=== PATIENT | female | born 1965 | race Caucasian/White ===

== ENCOUNTER 2017-06-05 10:12 | Emergency (ER) | payer MEDICAID, OTHER ==
[2017-06-05 10:13] VITALS: BMI 29.6
[2017-06-05 10:21] VITALS: RESP 18
[2017-06-05] MEDS ORDERED: Dexamethasone 4 mg/1 ml IM STA (11:48)
[2017-06-05] MEDS ORDERED: Lidocaine 5% Patch TD STA (11:49)
[2017-06-05] MEDS ORDERED: Dexamethasone 4 mg/1 ml ONE (12:10)
[2017-06-05] MEDS ORDERED: Lidocaine 5% Patch TD ONE (12:10)
--- NOTE | 2017-06-05 12:54 | C.PDOC ---
History Of Present Illness 52 year old female presents to the ED for evaluation of right-sided lower back pain which began yesterday. Patient states her pain is non-radiating and worse with movement of her back. Patient has been taking [id number] pain medicine without significant relief. Patient was evaluated at [facility] yesterday and was given Morphine and Flexeril, from which she found no relief. Patient denies fever, chills, abdominal pain, urinary/bowel incontinence , extremity numbness/weakness, or recent trauma/falls. Time Seen by Provider: 06/05/17 10:45 Chief Complaint (Nursing): Back Pain History Per: Patient History/Exam Limitations: no limitations Onset/Duration Of Symptoms: Hrs Current Symptoms Are (Timing): Still Present Quality Of Discomfort: "Pain" Previous Symptoms: Back Pain Associated Symptoms: denies: Incontinence, New Weakness, New Numbness Exacerbating Factor(s): Movement Additional History Per: Patient Past Medical History Reviewed: Historical Data, Nursing Documentation, Vital Signs Vital Signs: Last Vital Signs Temp 97.8 F 06/05/17 13:10 Pulse 78 06/05/17 13:10 Resp 18 06/05/17 13:10 BP 117/75 06/05/17 13:10 Pulse Ox 99 06/05/17 14:22 - Medical History PMH: Back Problems Surgical History: No Surg Hx Family History: States: Unknown Family Hx - Social History Hx Tobacco Use: Yes Hx Alcohol Use: Yes Hx Substance Use: No - Immunization History Hx Tetanus Toxoid Vaccination: Yes Hx Influenza Vaccination: Yes Hx Pneumococcal Vaccination: No Review Of Systems Constitutional: Negative for: Fever, Chills Gastrointestinal: Negative for: Abdominal Pain Genitourinary: Negative for: Incontinence Musculoskeletal: Positive for: Back Pain (right-sided, lower ) Neurological: Negative for: Weakness, Numbness Physical Exam - Physical Exam Appears: Non-toxic, No Acute Distress Skin: Normal Color, Warm, Dry, No Rash Head: Atraumatic, Normacephalic Eye(s): bilateral: Normal Inspection, PERRL, EOMI Oral Mucosa: Moist Neck: Normal ROM, Supple Chest: Symmetrical, No Deformity, No Tenderness Cardiovascular: Rhythm Regular, No Murmur Respiratory: Normal Breath Sounds, No Rales, No Rhonchi, No Wheezing Gastrointestinal/Abdominal: Soft, No Tenderness, No Guarding, No Rebound Back: No CVA Tenderness, Muscle Spasm (right lower back ) Extremity: Normal ROM, No Calf Tenderness, Capillary Refill (less than 2 seconds ), No Swelling Neurological/Psych: Oriented x3, Normal Speech, Normal Cognition, Normal Motor Gait: Steady ED Course And Treatment O2 Sat by Pulse Oximetry: 99 (on RA) Pulse Ox Interpretation: Normal Medical Decision Making Medical Decision Making: Progress: Toradol IM, Decadron IM and Lidoderm TD administered. On re-exam, the patient reports improvement of symptoms. Ambulatory in the ED with steady gait. Abdomen is soft, non-tender and patient is tolerating PO well. Lungs are CTA, heart is RRR. Follow up with the medical doctor within 1-2 days. return if worsened. Disposition - Disposition Referrals: [facility] [Outside] Disposition: HOME/ ROUTINE Disposition Time: 12:51 Condition: GOOD Additional Instructions: Follow up with the medical doctor within 1-2 days. Return if worsened. Prescriptions: diaZEpam [Valium] 5 mg PO TID #21 tab Naproxen [Naprosyn] 500 mg PO BID #20 tab Instructions: Muscle Spasm (ED) Forms: [email or web address] (Yakut), Work Excuse - Clinical Impression Clinical Impression: Muscle spasm, Low back pain - PA / GUARDIAN FAMILY MEMBER / Resident Statement MD/DO has reviewed & agrees with the documentation as recorded. - Scribe Statement The provider has reviewed the documentation as recorded by the Scribe (Kay Flores) All medical record entries made by the Scribe were at my direction and personally dictated by me. I have reviewed the chart and agree that the record accurately reflects my personal performance of the history, physical exam, medical decision making, and the department course for this patient. I have also personally directed, reviewed, and agree with the discharge instructions and disposition.
[2017-06-05 13:12] VITALS: BP 117/75; PULSE 78; TEMP 97.8; O2SAT 99
== END 2017-06-05 13:11 | disposition home or self-care (01) ==
LOC: C.ER 10:12
DX: M54.5 Low back pain (principal); M62.830 Muscle spasm of back
CPT/HCPCS: 96372; 99284; J1100; J1885

== ENCOUNTER 2017-09-29 15:37 | Emergency (ER) | payer SELFPAY ==
[2017-09-29 16:10] VITALS: BMI 34.7
--- NOTE | 2017-09-29 17:39 | C.PDOC ---
History Of Present Illness 52 year old female with a Hx of tennis elbow presents to the ER with a complaint of persistent right elbow pain. 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 She was seen by ortho who advised to take naproxen; she also notes she has been using a tens machine at home and applying cold compress with no resolution over the past month. Denies weakness, numbness , or new injury. Time Seen by Provider: 09/29/17 17:12 Chief Complaint (Nursing): Upper Extremity Problem/Injury History Per: Patient History/Exam Limitations: no limitations Onset/Duration Of Symptoms: Days Current Symptoms Are (Timing): Still Present Exacerbating Factor(s): Strenuous Use Of Affected Area Recent travel outside of the [place]: No Past Medical History Reviewed: Historical Data, Nursing Documentation, Vital Signs Vital Signs: Last Vital Signs Temp 98.4 F 09/29/17 17:54 Pulse 70 09/29/17 17:54 Resp 20 09/29/17 17:54 BP 110/68 09/29/17 17:54 Pulse Ox 98 09/30/17 09:20 - Medical History PMH: Back Problems Family History: States: Unknown Family Hx - Social History Hx Tobacco Use: Yes Hx Alcohol Use: Yes Hx Substance Use: No - Immunization History Hx Tetanus Toxoid Vaccination: Yes Hx Influenza Vaccination: No Hx Pneumococcal Vaccination: No Review Of Systems Musculoskeletal: Positive for: Arm Pain Neurological: Negative for: Weakness, Numbness Physical Exam - Physical Exam Appears: Non-toxic, No Acute Distress Skin: Normal Color, Warm, Dry Head: Atraumatic, Normacephalic Eye(s): bilateral: Normal Inspection Extremity: Normal ROM (Right elbow with pain), Tenderness (Right lateral elbow) , Capillary Refill (<2 seconds), No Deformity, No Swelling, No Other (Redness) Pulses: Left Radial: Normal, Right Radial: Normal Neurological/Psych: Oriented x3, Normal Speech, Normal Motor, Normal Sensation ED Course And Treatment O2 Sat by Pulse Oximetry: 98 Medical Decision Making Medical Decision Making: pt with diagnosed tennis elbow right c/o pain x 1 month depsite nsaids, tens machine. cold compresses. pt still working. will apply eugenio bandage, recommend f/ u with ortho again and pain mgmt. Disposition Counseled Patient/Family Regarding: Diagnosis, Need For Followup, Rx Given - Disposition Referrals: Kenney Maravilla MD [Staff Provider] - Disposition: HOME/ ROUTINE Disposition Time: 17:39 Condition: STABLE Additional Instructions: Wear eugenio bandage on right elbow for support. FOllow up with your orthopedist, and pain management doctor. Continue taking naproxen and tylenol. Instructions: Elbow Tendinopathy (Tennis and Golf Elbow) Forms: General Discharge Instructions, [facility] (North Korean), Work Excuse - Clinical Impression Clinical Impression: Tendonitis of elbow, right - PA / COMMERCIAL COORDINATOR / Resident Statement MD/DO has reviewed & agrees with the documentation as recorded. - Scribe Statement The provider has reviewed the documentation as recorded by the Scribgraciela Garcia All medical record entries made by the Tinaibgraciela were at my direction and personally dictated by me. I have reviewed the chart and agree that the record accurately reflects my personal performance of the history, physical exam, medical decision making, and the department course for this patient. I have also personally directed, reviewed, and agree with the discharge instructions and disposition.
[2017-09-29 17:57] VITALS: BP 110/68; PULSE 70; RESP 20; TEMP 98.4
[2017-09-30 09:20] VITALS: O2SAT 98
== END 2017-09-29 17:58 | disposition home or self-care (01) ==
LOC: C.ER 15:37
DX: M77.8 Other enthesopathies, not elsewhere classified (principal)

== ENCOUNTER 2017-10-09 14:15 | Emergency (ER) | payer OTHER ==
[2017-10-09 14:15] VITALS: BMI 34.7
[2017-10-09 14:44] VITALS: O2SAT 98
--- NOTE | 2017-10-09 14:52 | C.PDOC ---
History Of Present Illness 52 y/o female presents to the ED for evaluation of right-sided lower back pain which began 2 days ago. She notes the pain radiates to down her leg. Patient reports history of similar symptoms for "years." She states she underwent an MRI , which showed herniated discs. 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 Patient has not taken any medicine today. She denies fever , chills, abdominal pain, urinary/bowel incontinence, recent falls/trauma, extremity numbness/weakness. Time Seen by Provider: 10/09/17 14:52 Chief Complaint (Nursing): Back Pain History Per: Patient History/Exam Limitations: no limitations Onset/Duration Of Symptoms: Days (2) Current Symptoms Are (Timing): Still Present Quality Of Discomfort: "Pain" Previous Symptoms: Back Pain Associated Symptoms: denies: Incontinence, New Weakness, New Numbness Additional History Per: Patient Past Medical History Reviewed: Historical Data, Nursing Documentation, Vital Signs Vital Signs: Last Vital Signs Temp 98.2 F 10/09/17 15:55 Pulse 79 10/09/17 15:55 Resp 16 10/09/17 15:55 BP 102/68 10/09/17 15:55 Pulse Ox 98 10/09/17 19:25 - Medical History PMH: Back Problems Surgical History: No Surg Hx Family History: States: Unknown Family Hx - Social History Hx Tobacco Use: Yes Hx Alcohol Use: Yes Hx Substance Use: No - Immunization History Hx Tetanus Toxoid Vaccination: Yes Hx Influenza Vaccination: No Hx Pneumococcal Vaccination: No Review Of Systems Constitutional: Negative for: Fever, Chills Gastrointestinal: Negative for: Abdominal Pain Genitourinary: Negative for: Incontinence Musculoskeletal: Positive for: Back Pain (right-sided, lower ), Leg Pain Neurological: Negative for: Weakness, Numbness Physical Exam - Physical Exam Appears: Non-toxic, No Acute Distress Skin: Normal Color, Warm, Dry Head: Atraumatic, Normacephalic Eye(s): bilateral: Normal Inspection, EOMI Nose: Normal Oral Mucosa: Moist Neck: Normal ROM, Supple Chest: Symmetrical, No Deformity, No Tenderness Cardiovascular: Rhythm Regular Respiratory: Normal Breath Sounds, No Rales, No Rhonchi, No Wheezing Gastrointestinal/Abdominal: Normal Exam, Soft, No Tenderness Back: No CVA Tenderness, No Vertebral Tenderness, Other (right lower back tenderness ) Extremity: Normal ROM, Capillary Refill (less than 2 seconds ) Pulses: Left Dorsalis Pedis: Normal, Right Dorsalis Pedis: Normal Neurological/Psych: Oriented x3, Normal Speech, Normal Cognition, Normal Motor, Normal Sensation Gait: Steady ED Course And Treatment O2 Sat by Pulse Oximetry: 98 (on RA) Pulse Ox Interpretation: Normal Progress Note: UA ordered and reviewed. Pt declined XR. Flexeril PO and Toradol IM administered. On reassessment, patient is resting comfortably, with improvement of back pain. Patient remains afebrile, with no bony tenderness, extremity numbness or weakness, or abdominal pain. Patient is ambulatory in the emergency department with no signs of discomfort. Patient was advised to follow up with physician/clinic in 2-5 days. Disposition - Disposition Disposition: HOME/ ROUTINE Disposition Time: 15:45 Condition: STABLE Additional Instructions: Follow up with the clinic in 2-5 days for further evaluation. Take medications as prescribed. Return to the emergency department at any time if symptoms persist or worsen. You may call [facility] for any assistance [phone]. Prescriptions: Cyclobenzaprine [Cyclobenzaprine HCl] 10 mg PO TID #20 tab Naproxen [Naprosyn] 1 tab PO BID PRN #20 tab PRN Reason: Pain Instructions: Low Back Pain (DC) Forms: [facility] (Arabic), Work Excuse - Clinical Impression Clinical Impression: Low back strain - PA / PROFESSOR OF PHYSICS / Resident Statement MD/DO has reviewed & agrees with the documentation as recorded. - Scribe Statement The provider has reviewed the documentation as recorded by the Scribe (Kay Flores) All medical record entries made by the Scribe were at my direction and personally dictated by me. I have reviewed the chart and agree that the record accurately reflects my personal performance of the history, physical exam, medical decision making, and the department course for this patient. I have also personally directed, reviewed, and agree with the discharge instructions and disposition.
[2017-10-09 15:33] LABS: SQUAMOUS EPITHIAL 1 /hpf (0-5); URINE BILIRUBIN NEGATIVE (NEGATIVE); URINE BLOOD NEGATIVE (NEGATIVE); URINE CLARITY Clear (Clear); URINE COLOR Yellow (YELLOW); URINE GLUCOSE (UA) NORMAL (Normal); URINE LEUKOCYTE ESTERASE NEG Leu/uL (Negative); URINE NITRATE NEGATIVE (NEGATIVE); URINE PROTEIN NEGATIVE (NEGATIVE); URINE UROBILINOGEN NORMAL mg/dL (0.2-1.0)
[2017-10-09 15:36] LABS: HCG,QUALITATIVE URINE NEGATIVE (NEGATIVE)
[2017-10-09 16:11] VITALS: BP 102/68; PULSE 79; RESP 16; TEMP 98.2
== END 2017-10-09 15:55 | disposition home or self-care (01) ==
LOC: C.ER 14:15
DX: S39.012A Strain of muscle, fascia and tendon of lower back, initial encounter (principal); X50.3XXA Overexertion from repetitive movements, initial encounter; Y92.89 Other specified places as the place of occurrence of the external cause; Y99.0 Civilian activity done for income or pay
CPT/HCPCS: 81001; 84703; 96372; 99283; J1885

== ENCOUNTER 2017-10-22 11:26 | Emergency (ER) | payer OTHER ==
[2017-10-22 11:30] VITALS: BMI 35.6
[2017-10-22 11:32] VITALS: PULSE 75
[2017-10-22] MEDS ORDERED: Lidocaine 5% Patch TD STA (11:46)
--- NOTE | 2017-10-22 12:11 | C.PDOC ---
History Of Present Illness Patient is a 52 y/o female who presents to the ED with a complaint of left- sided back pain. Patient admits to having a Hx of recurrent back pain, but notes it is usually on the right side that radiates to the right leg. Patient reports to have been leaving her house today when she felt left-sided back pain that suddenly radiated to the left leg, noting tingling sensations. Rates pain 8 /10 with worsening, sharp pain with movement. Denies any dysuria, hematuria, fever, chills, or any other physical complaints at this time. Time Seen by Provider: 10/22/17 11:42 Chief Complaint (Nursing): Back Pain History Per: Patient History/Exam Limitations: no limitations Onset/Duration Of Symptoms: Hrs Current Symptoms Are (Timing): Still Present Quality Of Discomfort: Sharp Previous Symptoms: Back Pain (usually right sided) Associated Symptoms: Other (tingling to left leg) Exacerbating Factor(s): Movement Recent travel outside of the [place]: No Past Medical History Reviewed: Historical Data, Nursing Documentation, Vital Signs Vital Signs: Last Vital Signs Temp 97.8 F 10/22/17 11:30 Pulse 75 10/22/17 11:30 Resp 18 10/22/17 11:30 BP 125/79 10/22/17 11:30 Pulse Ox 98 10/22/17 12:21 - Medical History PMH: Back Problems Surgical History: No Surg Hx Family History: States: No Known Family Hx - Social History Hx Tobacco Use: Yes (light smoker) Hx Alcohol Use: Yes Hx Substance Use: No - Immunization History Hx Tetanus Toxoid Vaccination: No Hx Influenza Vaccination: No Hx Pneumococcal Vaccination: No Review Of Systems Constitutional: Negative for: Fever, Chills Genitourinary: Negative for: Dysuria, Hematuria Musculoskeletal: Positive for: Back Pain (left-sided), Leg Pain (left leg radiated from back) Physical Exam - Physical Exam Appears: Well Back: Normal Inspection, No CVA Tenderness, Other (responding in pain every few minutes to spasm) Extremity: No Tenderness, No Deformity ED Course And Treatment O2 Sat by Pulse Oximetry: 98 Medical Decision Making Medical Decision Making: Motrin, tylenol, flexeril, and lidoderm administered. Patient requesting Todadol. Given. Patient feeling better. Disposition Counseled Patient/Family Regarding: Diagnosis, Need For Followup, Rx Given - Disposition Disposition: HOME/ ROUTINE Disposition Time: 13:57 Condition: STABLE Additional Instructions: Rest. Take medications as indicated. Follow up with your doctor. Prescriptions: Cyclobenzaprine [Cyclobenzaprine HCl] 10 mg PO TID #12 tab Ibuprofen [Motrin] 600 mg PO TID #15 tab Lidocaine 5% [Lidoderm] 1 ea TD DAILY #1 patch Instructions: Muscle Spasms (DC) Forms: [employer] (Bangladeshi), General Discharge Instructions, Work Excuse - POA Present On Arrival: None - Clinical Impression Clinical Impression: Sciatica, Muscle spasm - Scribe Statement The provider has reviewed the documentation as recorded by the Scribe Nereida Vidales All medical record entries made by the Scribe were at my direction and personally dictated by me. I have reviewed the chart and agree that the record accurately reflects my personal performance of the history, physical exam, medical decision making, and the department course for this patient. I have also personally directed, reviewed, and agree with the discharge instructions and disposition.
[2017-10-22] MEDS ORDERED: Lidocaine 5% Patch TD ONE (12:15)
[2017-10-22 14:38] VITALS: BP 136/84; RESP 20; TEMP 98.7; O2SAT 95
== END 2017-10-22 14:38 | disposition home or self-care (01) ==
LOC: C.ER 11:26
DX: M54.30 Sciatica, unspecified side (principal); M62.838 Other muscle spasm; F17.210 Nicotine dependence, cigarettes, uncomplicated
CPT/HCPCS: 96372; 99283; J1885

== ENCOUNTER 2017-12-11 08:53 | Emergency (ER) | payer OTHER ==
[2017-12-11 08:53] VITALS: BMI 35.6
[2017-12-11 08:59] VITALS: BP 113/73; PULSE 71; RESP 18; TEMP 97.8; O2SAT 98
--- NOTE | 2017-12-11 10:12 | RAD ---
HISTORY: cough COMPARISON: Comparison made with chest radiograph dated 03/21 TECHNIQUE: Chest PA and lateral FINDINGS: LUNGS: No active pulmonary disease. PLEURA: No significant pleural effusion identified. No pneumothorax apparent. CARDIOVASCULAR: Normal. OSSEOUS STRUCTURES: Minor multilevel degenerative spondylosis of the thoracic spine. Spell VISUALIZED UPPER ABDOMEN: Normal. OTHER FINDINGS: None. IMPRESSION: No active disease.
--- NOTE | 2017-12-11 10:27 | C.PDOC ---
History Of Present Illness 52 y/o female presents to the ER complaining of non-productive cough, and sore throat which has been present for the past 3 days. Patient states that she has some nasal congestion and she is losing her voice. Otherwise, patient denies having fever, CP, SOB, and other medical complaints. HPI: Influenza Time Seen by Provider: 12/11/17 09:12 Chief Complaint: Cough, Cold, Congestion History Per: Patient Onset/Duration Of Symptoms: Days Symptoms include: sore throat, cough. denies: chest pain Risk factors for flu complications: No: adult > 65 years Past Medical History Reviewed: Historical Data, Nursing Documentation, Vital Signs Vital Signs: Last Vital Signs Temp 97.8 F 12/11/17 08:57 Pulse 71 12/11/17 08:57 Resp 18 12/11/17 08:57 BP 113/73 12/11/17 08:57 Pulse Ox 98 12/11/17 08:57 - Medical History PMH: Back Problems Other Surgeries: Hx of surgeries Family History: States: No Known Family Hx - Social History Hx Tobacco Use: Yes (light smoker) Hx Alcohol Use: Yes Hx Substance Use: No - Immunization History Hx Tetanus Toxoid Vaccination: No Hx Influenza Vaccination: No Hx Pneumococcal Vaccination: No Review Of Systems Constitutional: Negative for: Fever, Chills ENT: Positive for: Throat Pain Cardiovascular: Negative for: Chest Pain Respiratory: Positive for: Cough (non-productive cough). Negative for: Shortness of Breath, Hemoptysis, SOB with Excertion, Wheezing Gastrointestinal: Negative for: Nausea, Vomiting, Abdominal Pain, Constipation Genitourinary: Negative for: Dysuria Neurological: Negative for: Weakness, Numbness, Headache Physical Exam - Physical Exam Appears: Well, Non-toxic, No Acute Distress, Other (awake, alert, oriented x 3, coughing during exam) Skin: Normal Color, Warm Head: Atraumatic, Normacephalic Eye(s): bilateral: Normal Inspection Ear(s): Bilateral: Normal Throat: Erythema (mild erythema), No Exudate Neck: Supple Cardiovascular: Rhythm Regular Respiratory: Normal Breath Sounds, No Rales, No Rhonchi, No Wheezing Back: Normal Inspection Extremity: Normal ROM Neurological/Psych: Oriented x3, Normal Speech - ECG O2 Sat by Pulse Oximetry: 98 (RA) Pulse Ox Interpretation: Normal - Radiology X-Ray: Interpreted by Me, Viewed By Me X-Ray Interpretation: No Acute Disease - Progress ED Course And Treament: Rapid Strep Test and CXR ordered to rule out pneumonia. Patient given Toradol IM and Tessalon Perles PO. Cxray negative. Strep negative. Outside the window for tamiflu. Well appearing with normal vitals. Disposition - Disposition Disposition: HOME/ ROUTINE Disposition Time: 11:08 Condition: GOOD Additional Instructions: Follow-up with PMD within 2 days. Rest, copious fluids. Motrin or tylenol for pain or fever. Return to ED if condition worsens. Instructions: Upper Respiratory Infection (ED) Forms: [employer] (Gibraltarian), [employer] (Lao), Work Excuse Print Language: MOROCCAN - Clinical Impression Clinical Impression: Influenza-like illness, Upper respiratory infection - Scribe Statement The provider has reviewed the documentation as recorded by the Scribe Alber Maharaj Provider Attestation: All medical record entries made by the Scribe were at my direction and personally dictated by me. I have reviewed the chart and agree that the record accurately reflects my personal performance of the history, physical exam, medical decision making, and the department course for this patient. I have also personally directed, reviewed, and agree with the discharge instructions and disposition.
== END 2017-12-11 11:15 | disposition home or self-care (01) ==
LOC: C.ER 08:53
DX: J11.1 Influenza due to unidentified influenza virus with other respiratory manifestations (principal); F17.210 Nicotine dependence, cigarettes, uncomplicated
CPT/HCPCS: 71046; 87070; 87430; 96372; 99283; J1885

== ENCOUNTER 2017-12-25 10:19 | Emergency (ER) | payer OTHER ==
[2017-12-25 10:23] VITALS: BMI 34.2
--- NOTE | 2017-12-25 11:53 | RAD ---
PROCEDURE: Radiographs of the left tibia and fibula. HISTORY: injury COMPARISON: None available. TECHNIQUE: Frontal and lateral views obtained. FINDINGS: BONES: No acute fracture. Findings suggestive old proximal fibular fracture. JOINT SPACES: Unremarkable. OTHER FINDINGS: None. IMPRESSION: No demonstrated acute fracture or dislocation.
--- NOTE | 2017-12-25 11:53 | RAD ---
PROCEDURE: Left Ankle Radiographs. HISTORY: ankle injury COMPARISON: None FINDINGS: BONES: No acute fracture. JOINTS: Ankle mortise maintained. Talar dome intact SOFT TISSUES: Normal. OTHER FINDINGS: Inferior plantar calcaneal spur. IMPRESSION: No demonstrated fracture or dislocation.
[2017-12-25 12:49] VITALS: BP 107/73; PULSE 73; RESP 18; TEMP 98
--- NOTE | 2017-12-25 12:51 | C.PDOC ---
History Of Present Illness Patient presents to ED with complaints of gradually worsening left ankle pain s/ p twisting foot while walking outside 3 days ago. Patient states pain was minimal but has worsen with increased swelling prompting visit to ED today. Patient denies history of prior injury, numbness, weakness or any other complaints at this time. Time Seen by Provider: 12/25/17 10:56 Chief Complaint (Nursing): Lower Extremity Problem/Injury History Per: Patient History/Exam Limitations: no limitations Onset/Duration Of Symptoms: Days Current Symptoms Are (Timing): Still Present Past Medical History Reviewed: Historical Data, Nursing Documentation, Vital Signs Vital Signs: Last Vital Signs Temp 98.0 F 12/25/17 12:48 Pulse 73 12/25/17 12:48 Resp 18 12/25/17 12:48 BP 107/73 12/25/17 12:48 Pulse Ox 99 12/25/17 13:10 - Medical History PMH: Back Problems Surgical History: No Surg Hx Family History: States: No Known Family Hx - Social History Hx Tobacco Use: Yes (light smoker) Hx Alcohol Use: Yes Hx Substance Use: No - Immunization History Hx Tetanus Toxoid Vaccination: No Hx Influenza Vaccination: No Hx Pneumococcal Vaccination: No Review Of Systems Eyes: Negative for: Vision Change Cardiovascular: Negative for: Chest Pain Gastrointestinal: Negative for: Abdominal Pain Musculoskeletal: Positive for: Foot Pain. Negative for: Leg Pain Skin: Negative for: Rash, Bruising Neurological: Negative for: Weakness, Numbness Physical Exam - Physical Exam Appears: Non-toxic, No Acute Distress Skin: Warm, Dry, No Rash Head: Atraumatic, Normacephalic Eye(s): bilateral: Normal Inspection Oral Mucosa: Moist Neck: Normal ROM, Supple Extremity: Tenderness (left lateral malleolus ), Capillary Refill (<2 seconds), No Deformity, Swelling (Left lateral malleolus) Extremity: Bilateral: Normal Color And Temperature Pulses: Left Dorsalis Pedis: Normal, Right Dorsalis Pedis: Normal Neurological/Psych: Oriented x3, Normal Motor, Normal Sensation Gait: Steady ED Course And Treatment O2 Sat by Pulse Oximetry: 99 (RA) Pulse Ox Interpretation: Normal - Other Rad Left ankle X-Ray: Viewed By Me, Read By Radiologist Interpretation: IMPRESSION: No demonstrated fracture or dislocation. left tibia X-Ray: Viewed By Me, Read By Radiologist Interpretation: IMPRESSION: No demonstrated acute fracture or dislocation. Medical Decision Making Medical Decision Making: copy room technician applied air cast and instructed crutch walking Disposition - Disposition Referrals: Sydnie Flaherty DPM [Staff Provider] - [facility] [Outside] [facility] [Outside] Disposition: HOME/ ROUTINE Disposition Time: 12:49 Condition: GOOD Additional Instructions: follow up with the Priming Machine Operator within 1-2 days. Return if worsened. Prescriptions: Naproxen [Naprosyn] 500 mg PO BID #20 tab Instructions: Ankle Sprain (DC) Forms: Work Excuse - Clinical Impression Clinical Impression: Ankle sprain - PA / HAND I BLOCKER / Resident Statement MD/DO has reviewed & agrees with the documentation as recorded. - Scribe Statement The provider has reviewed the documentation as recorded by the Maxi Banerjee All medical record entries made by the Maxi were at my direction and personally dictated by me. I have reviewed the chart and agree that the record accurately reflects my personal performance of the history, physical exam, medical decision making, and the department course for this patient. I have also personally directed, reviewed, and agree with the discharge instructions and disposition.
[2017-12-25 12:52] VITALS: O2SAT 99
== END 2017-12-25 13:03 | disposition home or self-care (01) ==
LOC: C.ER 10:19
DX: S93.402A Sprain of unspecified ligament of left ankle, initial encounter (principal); X50.1XXA Overexertion from prolonged static or awkward postures, initial encounter; Y92.89 Other specified places as the place of occurrence of the external cause
CPT/HCPCS: 73590; 73610; 97116; 97161; 99284; G8978; G8979; G8980

== ENCOUNTER 2017-12-30 11:21 | Emergency (ER) | payer OTHER ==
[2017-12-30 11:21] VITALS: BMI 34.2
[2017-12-30 11:35] VITALS: BP 105/71; PULSE 80; RESP 18; TEMP 97.4; O2SAT 99
--- NOTE | 2017-12-30 12:13 | C.PDOC ---
History Of Present Illness 52yo female, with history of herniated disks, presents to ER with complaints of pins and needles sensation to her b/l feet L > R since yesterday. Patient states 1 week ago, she twisted her left ankle and on 12/25 she was evaluated in this ER for a sprained ankle. Since then, she has been using her crutches and splint intermittently but since yesterday, she has had the pins and needles sensation with a shooting cramp in her leg. She denies any trauma, bowel or bladder incontinence, lower back pain, calf pain or swelling. Time Seen by Provider: 12/30/17 11:44 Chief Complaint (Nursing): Lower Extremity Problem/Injury History Per: Patient History/Exam Limitations: no limitations Onset/Duration Of Symptoms: Days (1) Current Symptoms Are (Timing): Still Present Recent travel outside of the [place]: No Additional History Per: Patient - Ankle/Foot Description Of Injury: Twisted Past Medical History Reviewed: Historical Data, Nursing Documentation, Vital Signs Vital Signs: Last Vital Signs Temp 97.4 F L 12/30/17 11:33 Pulse 80 12/30/17 11:33 Resp 18 12/30/17 11:33 BP 105/71 12/30/17 11:33 Pulse Ox 99 12/30/17 12:53 - Medical History PMH: Back Problems Surgical History: No Surg Hx Family History: States: No Known Family Hx, Unknown Family Hx - Social History Hx Tobacco Use: Yes (light smoker) Hx Alcohol Use: Yes Hx Substance Use: No - Immunization History Hx Tetanus Toxoid Vaccination: No Hx Influenza Vaccination: No Hx Pneumococcal Vaccination: No Review Of Systems Except As Marked, All Systems Reviewed And Found Negative. Constitutional: Negative for: Fever, Chills Genitourinary: Negative for: Incontinence Musculoskeletal: Positive for: Leg Pain (left lower leg cramping pain). Negative for: Back Pain Neurological: Positive for: Other (pins and needles sensation to left foot). Negative for: Weakness, Numbness Physical Exam - Physical Exam Appears: Non-toxic, No Acute Distress Skin: Normal Color, Warm, Dry Head: Atraumatic, Normacephalic Eye(s): bilateral: Normal Inspection, EOMI Oral Mucosa: Moist Neck: Normal ROM, Supple Chest: Symmetrical Respiratory: No Accessory Muscle Use Gastrointestinal/Abdominal: Soft, No Tenderness Back: Normal Inspection, No Vertebral Tenderness, No Paraspinal Tenderness Extremity: Normal ROM (FROM of left ankle.), No Tenderness, No Pedal Edema, No Calf Tenderness, Capillary Refill (< 2 seconds), No Deformity, No Swelling Extremity: Bilateral: Normal Color And Temperature, Normal ROM Pulses: Left Dorsalis Pedis: Normal, Right Dorsalis Pedis: Normal Neurological/Psych: Oriented x3, Normal Motor (5/5 against resistance ), Normal Sensation ED Course And Treatment O2 Sat by Pulse Oximetry: 99 (RA) Pulse Ox Interpretation: Normal Progress Note: Patient given flexeril 10mg PO. Case discussed with Dr. Diaz who recommends a 2 week dose of Gabapentin for neuropathic pain relief. Blood sugar level 141. On re-evaluation, patient reports improvement in pain. She is awake, alert and in no distress. Patient is stable for discharge home, instructed to take medications as prescribed and to follow up with PMD in 2-3 days. Disposition - Disposition Referrals: Ac Phipps MD [Staff Provider] - Disposition: HOME/ ROUTINE Disposition Time: 12:16 Condition: STABLE Additional Instructions: Follow up with the referral doctor. Return to ER if symptoms persist or worsen. 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 - Scribe Statement The provider has reviewed the documentation as recorded by the Scribe (Loraine Hollis) Provider Attestation: All medical record entries made by the Scribe were at my direction and personally dictated by me. I have reviewed the chart and agree that the record accurately reflects my personal performance of the history, physical exam, medical decision making, and the department course for this patient. I have also personally directed, reviewed, and agree with the discharge instructions and disposition.
== END 2017-12-30 12:30 | disposition home or self-care (01) ==
LOC: C.ER 11:21
DX: G62.9 Polyneuropathy, unspecified (principal)

== ENCOUNTER 2018-03-30 12:51 | Emergency (ER) | payer OTHER ==
[2018-03-30 12:53] VITALS: BMI 34.2
[2018-03-30 13:04] VITALS: BP 119/68; PULSE 80; RESP 18; TEMP 98.5; O2SAT 99
--- NOTE | 2018-03-30 13:28 | C.PDOC ---
History Of Present Illness 53 year old female presents to the ED for evaluation of right eye irritation which began 2 days ago. Patient states she wears contacts and reports contact with excess dust while at work. She notes onset of irritation, redness and watery discharge since then. Patient also experienced some eyelid swelling which resolved s/p applying ice. Patient also reports some light sensitivity. She denies vision change or foreign body sensation. Time Seen by Provider: 03/30/18 13:18 Chief Complaint (Nursing): Eye Problem History Per: Patient History/Exam Limitations: no limitations Current Symptoms Are (Timing): Still Present Injury To Eye?: No Wears Contact Lens?: Yes Associated Symptoms: Swelling, Discharge From Eye. denies: Decreased Vision, FB Sensation Additional History Per: Patient Past Medical History Reviewed: Historical Data, Nursing Documentation, Vital Signs Vital Signs: Last Vital Signs Temp 98.5 F 03/30/18 13:00 Pulse 80 03/30/18 13:00 Resp 18 03/30/18 13:32 BP 119/68 03/30/18 13:00 Pulse Ox 99 03/30/18 14:58 - Medical History PMH: Back Problems Surgical History: No Surg Hx Family History: States: Unknown Family Hx - Social History Hx Tobacco Use: Yes (light smoker) Hx Alcohol Use: Yes Hx Substance Use: No - Immunization History Hx Tetanus Toxoid Vaccination: No Hx Influenza Vaccination: No Hx Pneumococcal Vaccination: No Review Of Systems Eyes: Positive for: Other (right eye irritation, redness and watery discharge ) . Negative for: Vision Change Physical Exam - Physical Exam Appears: Non-toxic, No Acute Distress Skin: Normal Color, Warm, Dry Head: Atraumatic Eye(s): right: Other (mild photophobia and conjunctival erythema. no watery discharge. eyelids negative ), left: Normal Inspection Oral Mucosa: Moist Neck: Supple Extremity: Normal ROM Neurological/Psych: Oriented x3, Normal Speech, Normal Cognition ED Course And Treatment O2 Sat by Pulse Oximetry: 99 (on RA) Pulse Ox Interpretation: Normal Disposition Counseled Patient/Family Regarding: Diagnosis, Need For Followup, Rx Given - Disposition Referrals: Daniel Bauer [Staff Provider] - [facility] [Outside] [facility] [Outside] Disposition: HOME/ ROUTINE Disposition Time: 13:27 Condition: GOOD Additional Instructions: AVOID CONTACT LENS USE X 1-2 WEEKS. FOLLOW UP OPTHOMOLOGY Prescriptions: Ciprofloxacin 0.3% [Ciloxan 0.3% Ophth SOLN] 2 drop OD Q2 #1 bottle Instructions: Conjunctivitis (Pinkeye) (DC) Forms: [facility] (Macedonian), Work Excuse - Clinical Impression Clinical Impression: Conjunctivitis - Scribe Statement The provider has reviewed the documentation as recorded by the Scribe (Kay Flores) Provider Attestation: All medical record entries made by the Scribe were at my direction and personally dictated by me. I have reviewed the chart and agree that the record accurately reflects my personal performance of the history, physical exam, medical decision making, and the department course for this patient. I have also personally directed, reviewed, and agree with the discharge instructions and disposition.
== END 2018-03-30 13:33 | disposition home or self-care (01) ==
LOC: C.ER 12:51
DX: H10.9 Unspecified conjunctivitis (principal)

== ENCOUNTER 2018-04-14 11:51 | Emergency (ER) | payer OTHER ==
[2018-04-14 11:51] VITALS: BMI 34.2
[2018-04-14 12:04] VITALS: O2SAT 95
[2018-04-14] MEDS ORDERED: Sodium Chloride 0.9% 1,000 ML IV STA (12:24)
[2018-04-14] MEDS ORDERED: Vancomycin 1 GM 1 GM/250 ML BAG IV STA (12:30)
[2018-04-14] MEDS ORDERED: Piperacillin/Tazobact 3.375 gm 100 ML IV STA (12:30)
[2018-04-14 12:33] LABS: BASO # 0.1 K/uL (0.0-0.2); BASO % 0.7 % (0.0-2.0); EOS # 0.2 K/uL (0.0-0.7); HEMOGLOBIN 13.4 g/dL (11.0-16.0); LYMPH # 1.5 K/uL (1.0-4.3); LYMPH % 15.3 % (20.0-40.0); MEAN CELL VOLUME 83.9 fL (81.0-99.0); MEAN CORPUSCULAR HEMOGLOBIN 29.2 pg (27.0-31.0); MEAN CORPUSCULAR HGB CONC 34.8 g/dL (33.0-37.0); MEAN PLATELET VOLUME 8.2 fL (7.2-11.7); MONO # 0.8 K/uL (0.0-0.8); MONO % 8.4 % (0.0-10.0); NEUT # 7.1 K/uL (1.8-7.0); NEUT % 73.6 % (50.0-75.0); RBC 4.59 Mil/uL (3.80-5.20); RED CELL DISTRIBUTION WIDTH 14.7 % (11.5-14.5); WHITE BLOOD COUNT 9.6 K/uL (4.8-10.8)
[2018-04-14 12:49] LABS: ALB/GLOB RATIO 1.4 (1.0-2.1); ALBUMIN 4.4 g/dL (3.5-5.0); ALT/SGPT 30 U/L (9-52); AST/SGOT 20 U/L (14-36); BLOOD UREA NITROGEN 13 mg/dL (7-17); CALCIUM 9.3 mg/dl (8.6-10.4); GFR NON-AFRICAN AMERICAN > 60
[2018-04-14] MEDS ORDERED: Piperacillin/Tazobact 3.375 gm 100 ML IVPB ONE (13:00)
[2018-04-14] MEDS ORDERED: Vancomycin 1 GM 1 GM/250 ML BAG IVPB ONE (13:01)
[2018-04-14] MEDS ORDERED: Iodixanol 320 MG/ML 100 ML BOTTLE IV ONE (13:19)
[2018-04-14 13:33] LABS: HCG,QUALITATIVE URINE NEGATIVE (NEGATIVE)
[2018-04-14 13:34] LABS: SQUAMOUS EPITHIAL 2 /hpf (0-5); URINE BILIRUBIN NEGATIVE (NEGATIVE); URINE BLOOD NEGATIVE (NEGATIVE); URINE CLARITY Clear (Clear); URINE COLOR Yellow (YELLOW); URINE GLUCOSE (UA) NORMAL (Normal); URINE LEUKOCYTE ESTERASE NEG Leu/uL (Negative); URINE PROTEIN NEGATIVE (NEGATIVE)
[2018-04-14 14:41] VITALS: BP 114/77; PULSE 75; RESP 16; TEMP 98
--- NOTE | 2018-04-14 15:17 | CT ---
Date of service: 04/14/2018 PROCEDURE: CT MAXILLOFACIAL BONES WITH CONTRAST HISTORY: R periorbital swelling, pain in the eye with movem COMPARISON: None. TECHNIQUE: Contiguous axial CT images of the maxillofacial bones were obtained following administration of IV contrast. Coronal and sagittal reformats were generated. Intravenous contrast Dose: 100 cc Visipaque 320 Radiation dose: Total exam DLP = 557.18 mGy-cm. This CT exam was performed using one or more of the following dose reduction techniques: Automated exposure control, adjustment of the mA and/or kV according to patient size, and/or use of iterative reconstruction technique. FINDINGS: NASAL BONES: Nasal bones intact. There is mild leftward deviation of the anterior nasal septum. Small of right-sided septal spur seen arising from the mid nasal septum. ORBITS: There is moderate to fairly significant right on periorbital soft tissue swelling that extends inferiorly into the infraorbital and pre maxillary soft tissues. . The swelling extends medially over the inner canthus region and over the base of the right nasal bones. No definitive evidence of postseptal extension so far as can be determined. There is also some extension posteriorly over infratemporal fossa region and over the zygomatic arch. Minimal supraorbital soft tissue extension. No definitive drainable subcutaneous fluid collections. The right and left globes are intact and lenses appropriately located. There are no retrobulbar hemorrhages or collections. The optic nerves and extraocular musculature unremarkable. The subjacent cortical bone surfaces intact with no destructive changes. PARANASAL SINUSES/ MASTOIDS: The paranasal sinuses are well-developed and currently well-aerated. No fluid levels seen to suggest acute sinusitis or hemorrhage. Minor mucosal thickening floor right maxillary antrum. MAXILLA: Unremarkable. MANDIBLE/ TEMPOROMANDIBULAR JOINTS: Unremarkable. SKULL BASE: Unremarkable. TEMPORAL BONES: Middle ears and mastoid grossly unremarkable. OTHER FINDINGS: None. IMPRESSION: Moderate of right-sided facial soft tissue swelling the epicenter at the the periorbital soft tissues consistent with a periorbital cellulitis. There is no definitive evidence of postseptal extension. No drainable fluid collections. .
--- NOTE | 2018-04-14 15:43 | C.PDOC ---
History Of Present Illness 53 year old female presents to the emergency department with complaints of stye on her right lower proximal eyelid. Patient states the pain is minimal but her eyelid got swollen and had some drainage. She has significant swelling of periorbital inferior area and upper part of cheek for the past day. Otherwise she denies any vision changes, dizziness, headache, nausea, or vomiting. Time Seen by Provider: 04/14/18 12:08 Chief Complaint (Nursing): Eye Problem History Per: Patient History/Exam Limitations: no limitations Onset/Duration Of Symptoms: Days Current Symptoms Are (Timing): Still Present Past Medical History Reviewed: Historical Data, Nursing Documentation, Vital Signs Vital Signs: Last Vital Signs Temp 98 F 04/14/18 14:41 Pulse 75 04/14/18 14:41 Resp 16 04/14/18 14:41 BP 114/77 04/14/18 14:41 Pulse Ox 95 04/14/18 19:17 - Medical History PMH: Back Problems Family History: States: No Known Family Hx - Social History Hx Tobacco Use: Yes (light smoker) Hx Alcohol Use: No Hx Substance Use: No - Immunization History Hx Tetanus Toxoid Vaccination: No Hx Influenza Vaccination: No Hx Pneumococcal Vaccination: No Review Of Systems Except As Marked, All Systems Reviewed And Found Negative. Constitutional: Negative for: Fever Eyes: Positive for: Pain (right eyelid ), Other (significant swelling of periorbital inferior area and upper part of cheek; eyeball discomfort when moving). Negative for: Vision Change Gastrointestinal: Negative for: Nausea, Vomiting Neurological: Negative for: Weakness, Numbness, Headache, Dizziness Physical Exam - Physical Exam Appears: Well, Non-toxic, No Acute Distress Skin: Warm, Dry Head: Atraumatic, Normacephalic, Other (erythema on upper part of cheek) Eye(s): bilateral: PERRL, EOMI, Other (Inner stye with discharge; erythema of right lower eyelid) Ear(s): Bilateral: Normal Nose: Normal Lips: Normal Appearing Neck: Normal ROM Chest: Symmetrical, No Tenderness Cardiovascular: Rhythm Regular Respiratory: Normal Breath Sounds Neurological/Psych: Oriented x3, Normal Speech, Normal Cognition, Normal Cranial Nerves ED Course And Treatment - Laboratory Results Result Diagrams: 04/14/18 12:29 04/14/18 12:29 O2 Sat by Pulse Oximetry: 95 (RA) Pulse Ox Interpretation: Normal - CT Scan/US CT Facial Bones Other Rad Studies (CT/US): Read By Radiologist, Radiology Report Reviewed CT/US Interpretation: FINDINGS: NASAL BONES: Nasal bones intact. There is mild leftward deviation of the anterior nasal septum. Small of right-sided septal spur seen arising from the mid nasal septum. ORBITS: There is moderate to fairly significant right on periorbital soft tissue swelling that extends inferiorly into the infraorbital and pre maxillary soft tissues. . The swelling extends medially over the inner canthus region and over the base of the right nasal bones. No definitive evidence of postseptal extension so far as can be determined. There is also some extension posteriorly over infratemporal fossa region and over the zygomatic arch. Minimal supraorbital soft tissue extension. No definitive drainable subcutaneous fluid collections. The right and left globes are intact and lenses appropriately located. There are no retrobulbar hemorrhages or collections. The optic nerves and extraocular musculature unremarkable. The subjacent cortical bone surfaces intact with no destructive changes. PARANASAL SINUSES/ MASTOIDS: The paranasal sinuses are well-developed and currently well-aerated. No fluid levels seen to suggest acute sinusitis or hemorrhage. Minor mucosal thickening floor right maxillary antrum. MAXILLA: Unremarkable. MANDIBLE/ TEMPOROMANDIBULAR JOINTS: Unremarkable. SKULL BASE: Unremarkable. TEMPORAL BONES: Middle ears and mastoid grossly unremarkable. OTHER FINDINGS: None. IMPRESSION: Moderate of right-sided facial soft tissue swelling the epicenter at the the periorbital soft tissues consistent with a periorbital cellulitis. There is no definitive evidence of postseptal extension. No drainable fluid collections. . Progress Note: CT Orbits/Facials, labs, and urinalysis ordered. IV fluids, toradol, vancomycin, and zosyn administered. CT scan showed no orbital cellulitis. On re-evaluation, patient feels better and prefers to go home. She was referred to an paint stockman and was instructed to return immediately to the ER if she is feeling worse or not feeling better. Disposition - Disposition Referrals: Jay Mendez MD [Staff Provider] - Disposition: HOME/ ROUTINE Disposition Time: 15:40 Condition: STABLE Additional Instructions: Follow up with Leather Stamper within 1-2 days. Return to ED immediately if feel worse. 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 - Scribe Statement The provider has reviewed the documentation as recorded by the Scribe Ana Vera All medical record entries made by the Tinaibgraciela were at my direction and personally dictated by me. I have reviewed the chart and agree that the record accurately reflects my personal performance of the history, physical exam, medical decision making, and the department course for this patient. I have also personally directed, reviewed, and agree with the discharge instructions and disposition.
== END 2018-04-14 15:53 | disposition home or self-care (01) ==
LOC: C.ER 11:51
DX: H00.022 Hordeolum internum right lower eyelid (principal); L03.213 Periorbital cellulitis
CPT/HCPCS: 70481; 80053; 81001; 84703; 85025; 85027; 87070; 87181; 96365; 96367; 96375; 99283; J1885; J2543; J3370; J7030; Q9967

== ENCOUNTER 2018-06-16 13:12 | Emergency (ER) | payer MEDICAID ==
[2018-06-16 13:12] VITALS: BMI 34.2
[2018-06-16 13:18] VITALS: BP 135/83; PULSE 80; RESP 20; TEMP 97.9; O2SAT 99
[2018-06-16 13:56] LABS: SQUAMOUS EPITHIAL 4 /hpf (0-5); URINE BACTERIA RARE (<OCC); URINE BILIRUBIN NEGATIVE (NEGATIVE); URINE BLOOD NEGATIVE (NEGATIVE); URINE CLARITY Clear (Clear); URINE COLOR Yellow (YELLOW); URINE GLUCOSE (UA) NORMAL (Normal); URINE LEUKOCYTE ESTERASE NEG Leu/uL (Negative); URINE PROTEIN NEGATIVE (NEGATIVE)
--- NOTE | 2018-06-16 13:57 | C.PDOC ---
History Of Present Illness 53 y/o female pt with hx of chronic lower back pain comes in for evaluation of lower back pain that gradually developed in the past few weeks. Pt reports her back pain is intermittent and radiates to her b/l lower extremities. Pt had similar sx in the past where she received an MRI which shows she had a herniated disc. Pt denies recent trauma or injury, fever, chills, nausea, vomiting, abdominal pain, dysuria, hematuria, saddle anesthesia, incontinence, denies weakness, sensory or vascular deficits to B/L LES. AMbulate to ED. Time Seen by Provider: 06/16/18 13:25 Chief Complaint (Nursing): Back Pain History Per: Patient History/Exam Limitations: no limitations Onset/Duration Of Symptoms: Days (weeks) Current Symptoms Are (Timing): Still Present Previous Symptoms: Back Pain Past Medical History Reviewed: Historical Data, Nursing Documentation, Vital Signs Vital Signs: Last Vital Signs Temp 97.9 F 06/16/18 13:15 Pulse 80 06/16/18 13:15 Resp 20 06/16/18 13:15 BP 135/83 06/16/18 13:15 Pulse Ox 99 06/16/18 13:15 - Medical History PMH: Back Problems Family History: States: Unknown Family Hx - Social History Hx Tobacco Use: Yes (light smoker) Hx Alcohol Use: No Hx Substance Use: No - Immunization History Hx Tetanus Toxoid Vaccination: No Hx Influenza Vaccination: No Hx Pneumococcal Vaccination: No Review Of Systems Except As Marked, All Systems Reviewed And Found Negative. Constitutional: Negative for: Fever, Chills, Other (trauma) Gastrointestinal: Negative for: Nausea, Vomiting, Abdominal Pain Genitourinary: Negative for: Dysuria, Frequency, Hematuria Musculoskeletal: Positive for: Back Pain (lower ), Leg Pain (b/l radiated from lower back pain) Physical Exam - Physical Exam Appears: Well, Non-toxic, No Acute Distress Skin: Warm, Dry Head: Normacephalic Eye(s): bilateral: PERRL Oral Mucosa: Moist Throat: No Erythema Neck: Supple Gastrointestinal/Abdominal: Soft, No Tenderness, No Distention, No Guarding, No Rebound Back: No CVA Tenderness, No Vertebral Tenderness, Paraspinal Tenderness (diffuse lumbar Left >right) Extremity: Normal ROM (x4), No Tenderness, No Calf Tenderness, Capillary Refill (<2 sec), No Deformity, No Swelling Extremity: Bilateral: Atraumatic, Normal Color And Temperature Pulses: Left Dorsalis Pedis: Normal, Right Dorsalis Pedis: Normal DTR: Knee (R): 2+, Knee (L): 2+ Neurological/Psych: Oriented x3, Normal Speech, Normal Cognition, Normal Motor, Normal Sensation, Normal Reflexes Gait: Steady ED Course And Treatment O2 Sat by Pulse Oximetry: 99 (RA) Pulse Ox Interpretation: Normal Progress Note: Impression: chronic lower back pain with acute exacerbation, hx of radiculopathy. Plans: -- UA. On re-eval, pt is afebrile, hemodynamically stable. Non-toxic. Ambulatory in ED with stable gait. ENT: no acute findings. Neck: Supple . Abd: Soft, non-tender. back: (-) CVA tenderness. Neruologicaly intact. UA- normal study. Pt has clinical findings c/w lumbar radiculopathy. ref. to f/u with PMD, PM in 2-3 days for re-eval. Stable for discharge now. Disposition Counseled Patient/Family Regarding: Studies Performed, Diagnosis, Need For Followup, Rx Given - Disposition Referrals: [facility] [Outside] Disposition: HOME/ ROUTINE Disposition Time: 14:23 Condition: STABLE Additional Instructions: LIght duty, avoid physical activity for1 week take medication as prescribed Follow up with PMD in 2-3 days for re-evaluation. return to Ed if any worsening or new changes. 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 - Scribe Statement The provider has reviewed the documentation as recorded by the Maxi Hook Do All medical record entries made by the Scribe were at my direction and personally dictated by me. I have reviewed the chart and agree that the record accurately reflects my personal performance of the history, physical exam, medical decision making, and the department course for this patient. I have also personally directed, reviewed, and agree with the discharge instructions and disposition.
== END 2018-06-16 15:09 | disposition home or self-care (01) ==
LOC: C.ER 13:12
DX: M54.16 Radiculopathy, lumbar region (principal)

== ENCOUNTER 2018-07-09 12:58 | Emergency (ER) | payer MEDICAID ==
[2018-07-09 12:58] VITALS: BMI 34.2
[2018-07-09 13:28] VITALS: BP 116/75; PULSE 75; RESP 20; TEMP 98.7; O2SAT 95
[2018-07-09] MEDS ORDERED: Promethazine/Cod 6.25mg-10mg/5ml Syr UD PO STA (14:04)
[2018-07-09] MEDS ORDERED: Albuterol 0.083% Inhal Sol (2.5 mg/3 mL) UD IH STA (14:04)
--- NOTE | 2018-07-09 14:07 | C.PDOC ---
History Of Present Illness 53 year old female with a history of asthma, smoker presents to the ED for evaluation of cold sx for past x3 days. Pt reports, (+) nasal congestion, runny nose, productive with clear sputum. Patient reports this morning feeling chest tightness. Denies fever, chills, nausea, vomiting, chest pain, palpitations, abd. pain, N/V, back pain, UTI sx, or any other associated symptoms. Time Seen by Provider: 07/09/18 13:30 Chief Complaint (Nursing): Cough, Cold, Congestion History Per: Patient History/Exam Limitations: no limitations Onset/Duration Of Symptoms: Days (x3) Current Symptoms Are (Timing): Still Present Past Medical History Reviewed: Historical Data, Nursing Documentation, Vital Signs Vital Signs: Last Vital Signs Temp 98.7 F 07/09/18 13:26 Pulse 75 07/09/18 13:26 Resp 20 07/09/18 13:26 BP 116/75 07/09/18 13:26 Pulse Ox 95 07/09/18 13:26 - Medical History PMH: Back Problems Family History: States: Unknown Family Hx - Social History Hx Tobacco Use: Yes (light smoker) Hx Alcohol Use: No Hx Substance Use: No - Immunization History Hx Tetanus Toxoid Vaccination: No Hx Influenza Vaccination: No Hx Pneumococcal Vaccination: No Review Of Systems Constitutional: Negative for: Fever, Chills Cardiovascular: Positive for: Other (chest tightness). Negative for: Chest Pain, Palpitations Respiratory: Positive for: Cough Gastrointestinal: Negative for: Nausea, Vomiting Physical Exam - Physical Exam Appears: Well, Non-toxic, No Acute Distress Skin: Normal Color, Warm, Dry, No Rash Head: Normacephalic Eye(s): bilateral: PERRL Ear(s): Bilateral: Normal Nose: No Flaring, Discharge (scant clear) Oral Mucosa: Moist, No Drooling Tongue: Normal Appearing Lips: Normal Appearing Throat: Erythema (mild B/L), No Drooling Neck: Trachea Midline, Supple Cardiovascular: Rhythm Regular Respiratory: No Decreased Breath Sounds, No Accessory Muscle Use, No Stridor, Wheezing (scattered bibasilar) Gastrointestinal/Abdominal: Soft, No Tenderness, No Distention, No Guarding Extremity: Normal ROM, No Deformity, No Swelling Neurological/Psych: Oriented x3, Normal Speech ED Course And Treatment O2 Sat by Pulse Oximetry: 95 (RA) Pulse Ox Interpretation: Normal Progress Note: Plan: Albuterol. Zithromax. Prednisone. Phenergan/Codeine. On re-eval, pt is afebrile, hemodynamicaly stable. APpearf more appropriate, reports mod imporevement in pain. NOn-toxic. PulseOx 95% RA. ENT: no acute findings. neck: SUpple, (-) JVD, (-) carotid bruits B/L. Lungs: CTA B/L, BS equal B/L. CVS: (+)S1S2, reg, (-) murmur. Abd: benign. neuorlogicaly intact. Pt has clinical findings c/w acute bronchitis, asthma. Pt advised and ref. to f/u with PMD in 2-3 days for re-eval. return if any new changes. Disposition Counseled Patient/Family Regarding: Diagnosis, Need For Followup, Rx Given - Disposition Referrals: [facility] [Outside] Disposition: HOME/ ROUTINE Disposition Time: 14:52 Condition: STABLE Additional Instructions: Encourage fluids Take medication as prescribed Follow up with PMD in 2-3 days for re-evaluation. return to ED if any worsening or new changes. 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 - Scribe Statement The provider has reviewed the documentation as recorded by the Scribe (Dipika Pierre) All medical record entries made by the Scribe were at my direction and personally dictated by me. I have reviewed the chart and agree that the record accurately reflects my personal performance of the history, physical exam, medical decision making, and the department course for this patient. I have also personally directed, reviewed, and agree with the discharge instructions and disposition.
[2018-07-09] MEDS ORDERED: Albuterol 0.083% Inhal Sol (2.5 mg/3 mL) UD ONE (14:23)
[2018-07-09] MEDS ORDERED: Promethazine DM 6.25 mg-15 mg/5 ml Syrup ONE (14:34)
== END 2018-07-09 15:10 | disposition home or self-care (01) ==
LOC: C.ER 12:58
DX: J45.909 Unspecified asthma, uncomplicated (principal); F17.200 Nicotine dependence, unspecified, uncomplicated

== ENCOUNTER 2018-08-09 08:45 | Day surgery (SDC) | payer MEDICAID ==
[2018-08-09 09:29] VITALS: BMI 35.3
[2018-08-09 09:56] VITALS: PULSE 76; RESP 16; TEMP 96.8; O2SAT 98
[2018-08-09] MEDS ORDERED: Propofol 10 mg/ml Inj (20 ML) ONE ×2 (11:06→11:34)
[2018-08-09 12:11] VITALS: BP 105/69
== END 2018-08-09 12:16 | disposition home or self-care (01) ==
LOC: C.ENDO 08:45
PROVIDERS: ATTEND Internal Medicine Gastroenterology
DX: Z12.11 Encounter for screening for malignant neoplasm of colon (principal); K64.1 Second degree hemorrhoids; K57.30 Diverticulosis of large intestine without perforation or abscess without bleeding; K63.5 Polyp of colon; D17.79 Benign lipomatous neoplasm of other sites; F17.210 Nicotine dependence, cigarettes, uncomplicated; Z79.899 Other long term (current) drug therapy
CPT/HCPCS: 45385; 84703; 88305; J2704; J7040

== ENCOUNTER 2018-09-21 14:06 | Emergency (ER) | payer MEDICAID ==
[2018-09-21 14:06] VITALS: BMI 35.3
[2018-09-21 14:55] VITALS: BP 160/83; PULSE 80; RESP 16; TEMP 99.1; O2SAT 99
--- NOTE | 2018-09-21 15:14 | C.PDOC ---
History Of Present Illness 53 year old female presents to the ED for evaluation of left upper arm pain that has been intermittent for two weeks. Patient describes an achy sensation to the anterior part of her left arm, and rates it as 6-7/10 in severity. She reports her arm feels tense, swollen and her pain worsens with movement. 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 Patient states she is right- hand dominant. She denies fever, chills, headache, nausea, vomiting, or recent trauma/injury to the site. Time Seen by Provider: 09/21/18 14:54 Chief Complaint (Nursing): Upper Extremity Problem/Injury History Per: Patient History/Exam Limitations: no limitations Onset/Duration Of Symptoms: Intermittent Episodes (two weeks) Current Symptoms Are (Timing): Still Present Quality: "Pain" Pain Scale Rating Of: 6 Exacerbating Factor(s): Movement Additional History Per: Patient Past Medical History Reviewed: Historical Data, Nursing Documentation, Vital Signs Vital Signs: Last Vital Signs Temp 99.1 F 09/21/18 14:53 Pulse 80 09/21/18 14:53 Resp 16 09/21/18 14:53 BP 160/83 H 09/21/18 14:53 Pulse Ox 99 09/21/18 14:53 - Medical History PMH: Back Problems Denies: Chronic Kidney Disease Surgical History: No Surg Hx Family History: States: Unknown Family Hx - Social History Hx Tobacco Use: Yes (light smoker) Hx Alcohol Use: No Hx Substance Use: No - Immunization History Hx Tetanus Toxoid Vaccination: No Hx Influenza Vaccination: No Hx Pneumococcal Vaccination: No Review Of Systems Constitutional: Negative for: Fever, Chills Gastrointestinal: Negative for: Nausea, Vomiting Musculoskeletal: Positive for: Arm Pain (left, atraumatic ) Neurological: Negative for: Headache Physical Exam - Physical Exam Appears: Non-toxic, No Acute Distress Skin: Normal Color, Warm, Dry, No Ecchymosis (left arm ) Extremity: No Normal ROM (limited range of motion of left arm secondary to pain with movement ), No Tenderness, Capillary Refill (less than 2 seconds ), Swelling (to anterior aspect of left arm ) Pulses: Left Radial: Normal, Right Radial: Normal Neurological/Psych: Oriented x3, Normal Speech, Normal Cognition, Normal Motor, Normal Sensation Gait: Steady ED Course And Treatment O2 Sat by Pulse Oximetry: 99 (on RA ) Pulse Ox Interpretation: Normal Medical Decision Making Medical Decision Making: Impression: 53 year old female with left arm pain Plan: * Motrin PO * Tylenol PO * reassess and disposition Progress: Motrin PO and Tylenol PO given. On reassessment, patient is resting comfortably, showing no signs of distress and reports an improvement in her symptoms. Patient is stable for discharge and is advised to follow up with her PMD within 1-2 days for further evaluation. Patient is advised to return to the ED if symptoms persist or worsen. Disposition Counseled Patient/Family Regarding: Diagnosis, Need For Followup, Rx Given - Disposition Disposition: HOME/ ROUTINE Disposition Time: 15:20 Condition: STABLE Prescriptions: Ibuprofen [Motrin] 600 mg PO TID #15 tab Instructions: Shoulder Sprain (DC) Forms: [employer] (Belgian), General Discharge Instructions, Work Excuse - POA Present On Arrival: None - Clinical Impression Clinical Impression: Sprain, Bursitis - Scribe Statement The provider has reviewed the documentation as recorded by the Scribe (Kay Flores) Provider Attestation: All medical record entries made by the Scribe were at my direction and personally dictated by me. I have reviewed the chart and agree that the record accurately reflects my personal performance of the history, physical exam, medical decision making, and the department course for this patient. I have also personally directed, reviewed, and agree with the discharge instructions and disposition.
== END 2018-09-21 15:28 | disposition home or self-care (01) ==
LOC: C.ER 14:06
DX: M71.9 Bursopathy, unspecified (principal); S43.402A Unspecified sprain of left shoulder joint, initial encounter; X58.XXXA Exposure to other specified factors, initial encounter; F17.200 Nicotine dependence, unspecified, uncomplicated

== ENCOUNTER 2018-09-24 11:45 | Outpatient (CLI) | payer MEDICAID | END 2018-09-24 11:46 | disposition home or self-care (01) | LOC: C.MAMMO 11:45 | DX: R92.8 Other abnormal and inconclusive findings on diagnostic imaging of breast (principal); F17.200 Nicotine dependence, unspecified, uncomplicated ==